=== PATIENT | female | born 1965 | race American Indian/Alaskan Native ===

== ENCOUNTER 2016-12-13 11:00 | Outpatient (CLI) | payer BC | END 2016-12-13 11:01 | disposition home or self-care (01) | LOC: SLR 11:00 | PROVIDERS: ATTEND Specialist | DX: G47.30 Sleep apnea, unspecified (principal); E66.9 Obesity, unspecified; I10 Essential (primary) hypertension | CPT/HCPCS: G0399 ==

== ENCOUNTER 2017-03-18 07:30 | Inpatient (IN) | payer BC, OTHER ==
[~2017-03-18 07:30] MED LIST: NACL 0.9% 1000 ML 1,000 ML IV SCH; PEPCID IV NR; TRANSDERM-SCOP TD NR; VERSED IV NR
[2017-03-18] MEDS ORDERED: MYLICON PO PRN (07:48)
[2017-03-18] MEDS ORDERED: ZOFRAN IV PRN (07:48)
[2017-03-18] MEDS ORDERED: REGLAN IV PRN (07:48)
[2017-03-18] MEDS ORDERED: APRESOLINE IV PRN (07:48)
[2017-03-18] MEDS ORDERED: ZEMURON IV ONE ×2 (08:14→11:20)
[2017-03-18] MEDS ORDERED: XYLOCAINE MPF 2% ONE (08:14)
[2017-03-18] MEDS ORDERED: SUBLIMAZE ONE (08:14)
[2017-03-18] MEDS ORDERED: DIPRIVAN 10 MG/ML IV ONE (08:15)
[2017-03-18] MEDS ORDERED: LOVENOX SUB-Q NR (09:15)
[2017-03-18] MEDS ORDERED: LEVAQUIN 500MG/100ML 500 MG/100 ML BAG IV NR (09:16)
[2017-03-18] MEDS ORDERED: FLAGYL 500 MG/100 ML 500 MG/100 ML BAG IV NR (09:16)
[2017-03-18] MEDS ORDERED: XYLOCAINE 1% 20 mL ONE (09:34)
[2017-03-18] MEDS ORDERED: MARCAINE 0.5% 30 ML INFILTRATI ONE (09:34)
--- NOTE | 2017-03-18 09:50 | Anesthesia Consultation ---
Anesthesia Consult and Med Hx Date of service: 03/18/17 - Airway Anesthetic Teeth Evaluation: Good ROM Head & Neck: Adequate Mental/Hyoid Distance: Adequate Mallampati Class: Class II Intubation Access Assessment: Probably Good - Pulmonary Exam CTA: Yes - Cardiac Exam Cardiac Exam: RRR - Pre-Operative Health Status ASA Pre-Surgery Classification: ASA3 Proposed Anesthetic Plan: General - Pulmonary Hx Smoking: No - Cardiovascular System Hx Hypertension: No - Central Nervous System Hx Psychiatric Problems: Yes (Anxiety) - Gastrointestinal Hx Gastroesophageal Reflux Disease: Yes - Hematic Hx Anemia: Yes - Other Systems Hx Obesity: Yes
--- NOTE | 2017-03-18 09:50 | Anesthesia Day of Surgery ---
Anesthesia Day of Surgery - Day of Surgery Patient Examined: Yes Patient H&P Reviewed: Yes Patient is NPO: Yes
[2017-03-18] MEDS ORDERED: MARCAINE 0.5% INFILTRATI ONE (09:57)
[2017-03-18] MEDS ORDERED: XYLOCAINE 1% 20 mL INFILTRATI ONE (09:57)
[2017-03-18] MEDS ORDERED: NACL 0.9% IR ONE (09:57)
[2017-03-18] MEDS ORDERED: NEO SYNEPHRINE/NS Syringe(OR USE) IV ONE ×2 (11:05→11:37)
[2017-03-18] MEDS ORDERED: FLEXERIL PO PRN (11:13)
[2017-03-18] MEDS ORDERED: DILAUDID ONE (11:20)
[2017-03-18] MEDS ORDERED: DECADRON ONE (11:22)
[2017-03-18] MEDS ORDERED: NACL 0.9% 1000 ML 1,000 ML ONE (11:37)
[2017-03-18] MEDS ORDERED: ROBINUL ONE (11:54)
[2017-03-18] MEDS ORDERED: NEOSTIGMINE ONE (11:54)
[2017-03-18] MEDS ORDERED: MORPHINE IV ONE ×2 (12:40→12:55)
[2017-03-18] MEDS ORDERED: TORADOL IV ONE (13:02)
[2017-03-18] MEDS: MORPHINE IV PRN ×2 (18:07→21:32)
[2017-03-18] MEDS: LACTATED RINGERS 1,000 ML IV SCH (18:29)
[2017-03-18] MEDS: XANAX PO PRN (23:52)
[2017-03-18] MEDS: NORCO PO PRN (23:53)
[2017-03-19] MEDS: LACTATED RINGERS 1,000 ML IV SCH ×4 (00:05→20:24)
[2017-03-19 05:15] LABS: Basophils % (Auto) 0.5 % (0.0-1.8); Eosinophils # (Auto) 0.1 K/mm3 (0.0-0.4); Eosinophils % (Auto) 1.5 % (0.0-4.3); Hematocrit 32.8 % (30.3-42.9); Lymphocytes # (Auto) 1.2 K/mm3 (1.2-5.4); Lymphocytes % (Auto) 14.8 % (13.4-35.0); Mean Corpuscular HGB Conc 34 % (30-34); Mean Corpuscular Hemoglobin 28 pg (28-32); Mean Corpuscular Volume 84 fl (79-97); Monocytes # (Auto) 0.4 K/mm3 (0.0-0.8); Monocytes % (Auto) 4.9 % (0.0-7.3); Platelet Count 185 K/mm3 (140-440); Red Blood Count 3.92 M/mm3 (3.65-5.03); Red Cell Distribution Width 23.1 % (13.2-15.2)
[2017-03-19] MEDS: NORCO PO PRN ×2 (05:21→11:47)
[2017-03-19 05:40] LABS: Alanine Aminotransferase 62 units/L (7-56); Albumin 3.7 g/dL (3.9-5); BUN/Creatinine Ratio 20; Blood Urea Nitrogen 10 mg/dL (7-17); Calcium 8.4 mg/dL (8.4-10.2); Hemolysis Index 1
[2017-03-19] MEDS: LOVENOX SUB-Q SCH (09:45)
--- NOTE | 2017-03-19 11:54 | Discharge Summary ---
Providers - Providers Date of Admission: 03/18/17 07:30 Attending physician: YOAN HARRISON Primary care physician: SELENE TROTTER Hospitalization Reason for admission: surgery Condition: Good Procedures: 51 y.o. F s/p GJ revision, BP limb lengthening, hiatal hernia repair and repair of gastrotomy of gastric remnant Hospital course: 51 y.o. F admitted for bariatric surgery. She had a GJ revision, BP limb lengthening, hiatal hernia repair and repair of gastrotomy of gastric remnant. On POD 1 she was able to tolerate minimal clears and ambulate. Her abdominal pain was minmally controlled with pain medications. She stayed overnight to ensure her pain improved. On pod 2 her pain was more controlled. She was able to tolerate more liquids and ambulate. She will be discharged with the HALINA and will keep a recording of the daily outputs. She has been educated on how to change the drain dressing. Disposition: DC-01 TO HOME OR SELFCARE Core Measure Documentation - Palliative Care Palliative Care/ Comfort Measures: Not Applicable - Core Measures Any of the following diagnoses?: none Exam - Physical Exam Narrative exam: no change from prior - Constitutional Vitals: Temp Pulse Resp BP Pulse Ox 97.8 F 73 18 116/77 100 03/19/17 08:55 03/19/17 08:55 03/19/17 08:55 03/19/17 08:55 03/18/17 21:42 Plan Activity: other (no lifting >15lbs for 6 weeks. No crunches for 6 weeks. ) Diet: clear liquids (sugar free ) Wound: keep clean and dry Additional Instructions: Follow up for wound check. continue to walk and use Incentive spirometer. goal fluid intake is 64 oz and protein intake goal is 60g. Keep a record of the drain output. Empty the drain as needed. Follow up with: SELENE TROTTER MD [Primary Care Provider] - 7 Days
[2017-03-19 12:54] LABS: Bilirubin,Urine NEG (Negative); Blood,Urine SM (Negative); Color,Urine Yellow (Yellow); Mucus,Urine FEW /HPF; Nitrite,Urine NEG (Negative); Protein,Urine <15 mg/dL mg/dL (Negative); RBC,Urine < 1.0 /HPF (0.0-6.0); Urobilinogen,Urine < 2.0 mg/dL (<2.0)
--- NOTE | 2017-03-19 13:46 | Progress Note ---
Assessment and Plan 51 y.o. F s/p GJ revision, BP limb lengthening, hiatal hernia repair and repair of gastrotomy of gastric remnant. POD 1 Pain control- pt continues to have pain that is not well controlled. Will continue current regmine and add toradol. Encourage ambulation Nausea control HALINA teaching Will stay overnight to gain improved pain control . GI dvt proph Subjective Narrative: Pt resting in bed. She has left abdominal pain which is slightly improved with pain medications. She denies any nausea or vomiting. She has ambulated once today. She feels very weak. HALINA: 20cc serosang Objective Vital Signs - 12hr 03/19/17 03/19/17 08:55 13:20 Temperature 97.8 F 97.8 F Pulse Rate 73 81 Respiratory 18 20 Rate Blood Pressure 118/74 Blood Pressure 116/77 [Left] O2 Sat by Pulse 98 Oximetry - General physical appearance well developed, well nourished, obese - Respiratory normal expansion, clear to auscultation - Abdomen soft, other (tender at incision sites, incisional dressings cdi. HALINA serosang. no reboudn no guarding. +obese. ) - Neurologic normal coordination, normal sensation - Psychiatric oriented to time, oriented to person, oriented to place - Labs 03/19/17 04:56 03/19/17 04:56 Diabetes panel 03/19/17 Range/Units 04:56 Sodium 139 (137-145) mmol/L Potassium 4.3 (3.6-5.0) mmol/L Chloride 103.0 (98-107) mmol/L Carbon Dioxide 24 (22-30) mmol/L BUN 10 (7-17) mg/dL Creatinine 0.5 L (0.7-1.2) mg/dL Glucose 88 (65-100) mg/dL Calcium 8.4 (8.4-10.2) mg/dL AST 55 H (5-40) units/L ALT 62 H (7-56) units/L Alkaline Phosphatase 85 (35-129) units/L Total Protein 5.9 L (6.3-8.2) g/dL Albumin 3.7 L (3.9-5) g/dL Calcium panel 03/19/17 Range/Units 04:56 Calcium 8.4 (8.4-10.2) mg/dL Albumin 3.7 L (3.9-5) g/dL Pituitary panel 03/19/17 Range/Units 04:56 Sodium 139 (137-145) mmol/L Potassium 4.3 (3.6-5.0) mmol/L Chloride 103.0 (98-107) mmol/L Carbon Dioxide 24 (22-30) mmol/L BUN 10 (7-17) mg/dL Creatinine 0.5 L (0.7-1.2) mg/dL Glucose 88 (65-100) mg/dL Calcium 8.4 (8.4-10.2) mg/dL Adrenal panel 03/19/17 Range/Units 04:56 Sodium 139 (137-145) mmol/L Potassium 4.3 (3.6-5.0) mmol/L Chloride 103.0 (98-107) mmol/L Carbon Dioxide 24 (22-30) mmol/L BUN 10 (7-17) mg/dL Creatinine 0.5 L (0.7-1.2) mg/dL Glucose 88 (65-100) mg/dL Calcium 8.4 (8.4-10.2) mg/dL Total Bilirubin 0.40 (0.1-1.2) mg/dL AST 55 H (5-40) units/L ALT 62 H (7-56) units/L Alkaline Phosphatase 85 (35-129) units/L Total Protein 5.9 L (6.3-8.2) g/dL Albumin 3.7 L (3.9-5) g/dL
[2017-03-19] MEDS: TORADOL IV SCH ×3 (15:03→23:00)
[2017-03-19] MEDS: XANAX PO PRN (23:01)
[2017-03-20] MEDS: NORCO PO PRN ×2 (04:41→12:58)
[2017-03-20] MEDS: LACTATED RINGERS 1,000 ML IV SCH ×2 (04:43→11:03)
[2017-03-20 06:36] LABS: Hemoglobin 9.8 gm/dl (10.1-14.3); Mean Corpuscular HGB Conc 33 % (30-34); Mean Corpuscular Hemoglobin 27 pg (28-32); Mean Corpuscular Volume 84 fl (79-97); Platelet Count 161 K/mm3 (140-440); Red Blood Count 3.56 M/mm3 (3.65-5.03)
[2017-03-20 06:39] LABS: Red Cell Distribution Width 22.8 % (13.2-15.2)
[2017-03-20 06:48] LABS: Albumin 3.3 g/dL (3.9-5)
[2017-03-20 07:05] LABS: Alanine Aminotransferase 48 units/L (7-56); BUN/Creatinine Ratio 12; Blood Urea Nitrogen 6 mg/dL (7-17); Hemolysis Index 3
[2017-03-20 07:37] LABS: Anisocytosis 1+; Basophils % (Manual) 0 % (0.0-1.8); Ovalocytes Few; Poikilocytosis 1+; Target Cells Rare; Total Cells Counted 100
[2017-03-20] MEDS: TORADOL IV SCH (10:32)
[2017-03-20] MEDS: LOVENOX SUB-Q SCH (10:33)
--- NOTE | 2017-03-20 10:39 | Progress Note ---
Assessment and Plan 51 y.o. F s/p GJ revision, BP limb lengthening, hiatal hernia repair and repair of gastrotomy of gastric remnant. POD 2 Pain control- pt states pain is well controlled. Will continue current regmine. Continue to Encourage ambulation Nausea control HUMZA teaching completed - will dc home with humza Patient ready for discharge pending stat Hgb results - yesterday 11, today 9.8. If stable will dc. today. GI dvt proph Subjective Patient Reports: Positive: no new complaints, feels better, tolerating liquids well, flatus, no bowel movement Narrative: No acute events overnight. Patient was walking halls during interview, states she is ambulating well. Pain is well controlled at this time. Denies N/V or cramping. No bowel movement x4 days, but reports flatus. HUMZA: 30cc serosang Objective Vital Signs - 12hr 03/20/17 03/20/17 03/20/17 01:01 04:11 09:15 Temperature 97.9 F 97.9 F 97.3 F L Pulse Rate 74 52 L Respiratory 16 16 18 Rate Blood Pressure 128/78 122/77 Blood Pressure 136/95 [Left] O2 Sat by Pulse 96 100 Oximetry - General physical appearance no distress, no pain - Eyes PERRL, normal occular movement - Respiratory normal expansion, normal respiratory effort, clear to auscultation - Abdomen soft, bowel sounds normal, other (incision sites- dry blood. incisional tenderness. ) - Labs 03/20/17 05:18 03/20/17 05:18 Diabetes panel 03/20/17 Range/Units 05:18 Sodium 139 (137-145) mmol/L Potassium 3.7 (3.6-5.0) mmol/L Chloride 102.2 (98-107) mmol/L Carbon Dioxide 27 (22-30) mmol/L BUN 6 L (7-17) mg/dL Creatinine 0.5 L (0.7-1.2) mg/dL Glucose 81 (65-100) mg/dL Calcium 8.0 L (8.4-10.2) mg/dL AST 37 (5-40) units/L ALT 48 (7-56) units/L Alkaline Phosphatase 68 (35-129) units/L Total Protein 5.7 L (6.3-8.2) g/dL Albumin 3.3 L (3.9-5) g/dL Calcium panel 03/20/17 Range/Units 05:18 Calcium 8.0 L (8.4-10.2) mg/dL Albumin 3.3 L (3.9-5) g/dL Pituitary panel 03/20/17 Range/Units 05:18 Sodium 139 (137-145) mmol/L Potassium 3.7 (3.6-5.0) mmol/L Chloride 102.2 (98-107) mmol/L Carbon Dioxide 27 (22-30) mmol/L BUN 6 L (7-17) mg/dL Creatinine 0.5 L (0.7-1.2) mg/dL Glucose 81 (65-100) mg/dL Calcium 8.0 L (8.4-10.2) mg/dL Adrenal panel 03/20/17 Range/Units 05:18 Sodium 139 (137-145) mmol/L Potassium 3.7 (3.6-5.0) mmol/L Chloride 102.2 (98-107) mmol/L Carbon Dioxide 27 (22-30) mmol/L BUN 6 L (7-17) mg/dL Creatinine 0.5 L (0.7-1.2) mg/dL Glucose 81 (65-100) mg/dL Calcium 8.0 L (8.4-10.2) mg/dL Total Bilirubin 0.30 (0.1-1.2) mg/dL AST 37 (5-40) units/L ALT 48 (7-56) units/L Alkaline Phosphatase 68 (35-129) units/L Total Protein 5.7 L (6.3-8.2) g/dL Albumin 3.3 L (3.9-5) g/dL
[2017-03-20 15:43] LABS: Basophils % (Auto) 0.3 % (0.0-1.8); Eosinophils # (Auto) 0.2 K/mm3 (0.0-0.4); Eosinophils % (Auto) 4.5 % (0.0-4.3); Hemoglobin 10.7 gm/dl (10.1-14.3); Lymphocytes # (Auto) 1.7 K/mm3 (1.2-5.4); Lymphocytes % (Auto) 31.5 % (13.4-35.0); Mean Corpuscular HGB Conc 32 % (30-34); Mean Corpuscular Hemoglobin 28 pg (28-32); Mean Corpuscular Volume 85 fl (79-97); Monocytes # (Auto) 0.2 K/mm3 (0.0-0.8); Monocytes % (Auto) 4.3 % (0.0-7.3); Platelet Count 189 K/mm3 (140-440); Red Blood Count 3.88 M/mm3 (3.65-5.03); Red Cell Distribution Width 23.1 % (13.2-15.2)
[2017-03-20] MEDS ORDERED: MAGNESIUM SULFATE 2GM/50ML 2 GM/50 ML BAG IV ONE (16:30)
[2017-03-20 16:48] VITALS: BP 114/75
[2017-03-21] MEDS ORDERED: TRANSDERM-SCOP TD SCH (10:00)
== END 2017-03-20 19:30 | disposition home or self-care (01) | DRG 326 ==
LOC: 3A 07:30 → 3B-SURG 12:40
PROVIDERS: ADMIT Specialist; ATTEND Specialist
PROC: 0D9640Z Drainage of Stomach with Drainage Device, Percutaneous Endoscopic Approach (ICD-10-PCS; principal; 2017-03-18)
PROC: 0DNA4ZZ Release Jejunum, Percutaneous Endoscopic Approach (ICD-10-PCS; 2017-03-18)
PROC: 0DN64ZZ Release Stomach, Percutaneous Endoscopic Approach (ICD-10-PCS; 2017-03-18)
PROC: 0D1B4ZH Bypass Ileum to Cecum, Percutaneous Endoscopic Approach (ICD-10-PCS; 2017-03-18)
PROC: 0DQA4ZZ Repair Jejunum, Percutaneous Endoscopic Approach (ICD-10-PCS; 2017-03-18)
PROC: 0DQ64ZZ Repair Stomach, Percutaneous Endoscopic Approach (ICD-10-PCS; 2017-03-18)
DX: K91.1 Postgastric surgery syndromes (principal); S31.639A Puncture wound without foreign body of abdominal wall, unspecified quadrant with penetration into peritoneal cavity, initial encounter; E44.1 Mild protein-calorie malnutrition; K95.89 Other complications of other bariatric procedure; S36.33XA Laceration of stomach, initial encounter; K21.9 Gastro-esophageal reflux disease without esophagitis; F41.9 Anxiety disorder, unspecified; F32.9 Major depressive disorder, single episode, unspecified; Y83.2 Surgical operation with anastomosis, bypass or graft as the cause of abnormal reaction of the patient, or of later complication, without mention of misadventure at the time of the procedure; D53.8 Other specified nutritional anemias; D64.9 Anemia, unspecified; I10 Essential (primary) hypertension; E66.9 Obesity, unspecified; Z68.35 Body mass index [BMI] 35.0-35.9, adult; Z82.49 Family history of ischemic heart disease and other diseases of the circulatory system; Z90.710 Acquired absence of both cervix and uterus; Z80.59 Family history of malignant neoplasm of other urinary tract organ; Z84.89 Family history of other specified conditions; K66.0 Peritoneal adhesions (postprocedural) (postinfection)
CPT/HCPCS: 36415; 80053; 81001; 83735; 85007; 85025; C9250; J1100; J1170; J1650; J1885; J1956; J2250; J2270; J2370; J2405; J2704; J2710; J3010; J3475; J7030; J7120

== ENCOUNTER 2017-09-06 06:42 | Emergency (ER) | payer BC, OTHER ==
[2017-09-06 07:38] LABS: Basophils # (Auto) 0.1 K/mm3 (0.0-0.1); Basophils % (Auto) 1.1 % (0.0-1.8); Eosinophils # (Auto) 0.1 K/mm3 (0.0-0.4); Eosinophils % (Auto) 2.4 % (0.0-4.3); Hematocrit 34.9 % (30.3-42.9); Hemoglobin 11.1 gm/dl (10.1-14.3); Lymphocytes % (Auto) 32.5 % (13.4-35.0); Mean Corpuscular HGB Conc 32 % (30-34); Mean Corpuscular Hemoglobin 30 pg (28-32); Mean Corpuscular Volume 94 fl (79-97); Monocytes # (Auto) 0.4 K/mm3 (0.0-0.8); Monocytes % (Auto) 6.9 % (0.0-7.3); Platelet Count 237 K/mm3 (140-440); Red Blood Count 3.73 M/mm3 (3.65-5.03); Red Cell Distribution Width 14.5 % (13.2-15.2)
[2017-09-06 07:55] LABS: Alanine Aminotransferase 14 units/L (7-56); Albumin 3.9 g/dL (3.9-5); BUN/Creatinine Ratio 23; Blood Urea Nitrogen 14 mg/dL (7-17); Calcium 8.8 mg/dL (8.4-10.2); Hemolysis Index 11
[2017-09-06 08:17] LABS: Bacteria,Urine 2+ /HPF (Negative); Bilirubin,Urine NEG (Negative); Blood,Urine NEG (Negative); Color,Urine Yellow (Yellow); Mucus,Urine FEW /HPF; Protein,Urine <15 mg/dL mg/dL (Negative); Urobilinogen,Urine < 2.0 mg/dL (<2.0)
--- NOTE | 2017-09-06 08:18 | Emergency Department Report ---
ED Abdominal Pain HPI - General Chief Complaint: Abdominal Pain Stated Complaint: ABD PAIN Time Seen by Provider: 09/06/17 08:11 Source: patient Mode of arrival: Ambulatory Limitations: No Limitations - History of Present Illness Initial Comments: Patient gives 2 day history of left sided abdominal pain, with discomfort on urination for the past week. She has tried taking her 's amoxicillin for the past couple days, but this has not relieved any of her symptoms. She denies any nausea or vomiting, has not had any fever chills or diaphoresis. Past medical history is significant for prior gastric bypass surgery, as well as , hysterectomy, and tubal ligation. - Related Data Home Medications Medication Instructions Recorded Confirmed Last Taken ALPRAZolam [Xanax TAB] 1 mg PO QHS PRN 02/21/16 03/18/17 03/17/17 Previous Rx's Medication Instructions Recorded Last Taken Type Cyclobenzaprine [Flexeril 10 MG 10 mg PO TID PRN #15 tablet 01/25/17 03/17/17 Rx TAB] HYDROcodone/APAP 5-325 [[place] 1 each PO Q6HR PRN #12 tablet 09/06/17 Unknown Rx 5/325] Ondansetron [Zofran ODT TAB] 4 mg PO Q8HR PRN #5 tab.rapdis 09/06/17 Unknown Rx Sulfamethoxazole/Trimethoprim 1 each PO BID #14 tablet 09/06/17 Unknown Rx [Bactrim DS TAB] Allergies Allergy/AdvReac Type Severity Reaction Status Date / Time Penicillins Allergy Rash Verified 01/24/17 23:25 ED Review of Systems ROS: Stated complaint: ABD PAIN Other details as noted in HPI ED Past Medical Hx - Past Medical History Previous Medical History?: Yes Hx Hypertension: No Hx Congestive Heart Failure: No Hx Diabetes: No Hx GERD: Yes (FOR REVISION OF GASTRIC SURGERY) Hx Psychiatric Treatment: Yes (anxiety) Hx Asthma: No Hx COPD: No Hx HIV: No Additional medical history: Anemia (Has had blood transfusion x 2) - Surgical History Past Surgical History?: Yes Additional Surgical History: Gastric Bypass. TUBAL LIGATION. X 2. HYSTERECTOMY - Social History Smoking Status: Never Smoker Substance Use Type: None - Medications Home Medications: Home Medications Medication Instructions Recorded Confirmed Last Taken Type ALPRAZolam [Xanax TAB] 1 mg PO QHS PRN 02/21/16 03/18/17 03/17/17 History Cyclobenzaprine [Flexeril 10 MG 10 mg PO TID PRN #15 tablet 01/25/17 03/18/17 Rx TAB] HYDROcodone/APAP 5-325 [[place] 1 each PO Q6HR PRN #12 tablet 09/06/17 Unknown Rx 5/325] Ondansetron [Zofran ODT TAB] 4 mg PO Q8HR PRN #5 tab.rapdis 09/06/17 Unknown Rx Sulfamethoxazole/Trimethoprim 1 each PO BID #14 tablet 09/06/17 Unknown Rx [Bactrim DS TAB] ED Physical Exam - General Limitations: No Limitations General appearance: alert, in distress (mild discomfort left back and left flank ) - Head Head exam: Present: atraumatic, normocephalic - Eye Eye exam: Present: PERRL, EOMI - ENT ENT exam: Present: normal exam - Neck Neck exam: Present: normal inspection. Absent: tenderness - Respiratory Respiratory exam: Present: normal lung sounds bilaterally, other (no chest wall tenderness). Absent: wheezes, rales, rhonchi - Cardiovascular Cardiovascular Exam: Present: regular rate, normal heart sounds - GI/Abdominal GI/Abdominal exam: Present: soft, tenderness (left upper quadrant left flank, mild to moderate), normal bowel sounds. Absent: guarding, rebound - Rectal Rectal exam: Present: deferred - Extremities Exam Extremities exam: Present: normal inspection, full ROM - Back Exam Back exam: Present: normal inspection, tenderness (left costovertebral), CVA tenderness (L), muscle spasm. Absent: CVA tenderness (R), paraspinal tenderness , vertebral tenderness - Neurological Exam Neurological exam: Present: alert, oriented X3, CN II-XII intact. Absent: motor sensory deficit - Psychiatric Psychiatric exam: Present: normal affect, normal mood - Skin Skin exam: Present: warm, dry ED Course Vital Signs 09/06/17 09/06/17 06:44 06:51 Temperature 36.3 C L 36.3 C L Pulse Rate 55 L 61 Respiratory 14 16 Rate Blood Pressure 126/72 126/72 O2 Sat by Pulse 100 100 Oximetry ED Medical Decision Making - Lab Data Result diagrams: 09/06/17 07:32 09/06/17 07:26 - Radiology Data Radiology results: report reviewed (CT scan of abdomen without contrast, generally unremarkable, no acute intra-abdominal pathology, incidental note left nephrolithiasis) - Medical Decision Making Patient's had left-sided abdominal pain, with a benign abdomen, with some tenderness in the left costovertebral area, suggesting that she has an underlying urinary tract infection or pyelonephritis. This may been partially treated, as patient had taken her 's amoxicillin for the week previous. Laboratory evaluation is unremarkable, urinalysis is mixed with some bacteria, but no leukocyte esterase, but this could be a result of partial prior treatment. Finally, CT scanning is unremarkable, showing stable abdomen, intact Kasandra-en-Y bypass, but no other significant intra-abdominal pathology, including no obstruction, no diverticulitis, and no evidence of acute hydronephrosis, although patient does have a left renal stone. Patient appears to have secondary concerns over possible tumor, as her sister was diagnosed in similar fashion with a stage IV tumor. Patient was reassured, and will be treated symptomatically, and to have follow-up with her [facility] repaire[facility] central office. - Differential Diagnosis urinary tract infection, diverticulitis, small bowel obstruction Critical Care Time: No Critical care attestation.: If time is entered above; I have spent that time in minutes in the direct care of this critically ill patient, excluding procedure time. ED Disposition Clinical Impression: Vaginal candidiasis, Left nephrolithiasis Abdominal pain Qualifiers: Abdominal location: left upper quadrant Qualified Code(s): R10.12 - Left upper quadrant pain Urinary tract infection Qualifiers: Urinary tract infection type: acute pyelonephritis Qualified Code(s): N10 - Acute pyelonephritis Disposition: TO HOME OR SELFCARE Is pt being admited?: No Does the pt Need Aspirin: No Condition: Stable Instructions: Urinary Tract Infection in Women (ED), Abdominal Pain (ED) Prescriptions: HYDROcodone/APAP 5-325 [[place] 5/325] 1 each PO Q6HR PRN #12 tablet PRN Reason: Pain Ondansetron [Zofran ODT TAB] 4 mg PO Q8HR PRN #5 tab.rapdis PRN Reason: Nausea Sulfamethoxazole/Trimethoprim [Bactrim DS TAB] 1 each PO BID #14 tablet Referrals: PRIMARY CARE, [Primary Care Provider] - 3-5 Days Time of Disposition: 09:12
--- NOTE | 2017-09-06 08:55 | Cat Scan Report ---
FINAL REPORT EXAM: CT ABDOMEN PELVIS WO CON HISTORY: abd pain/ HX of gastric Sx TECHNIQUE: CT images obtained through the Abdomen and Pelvis without contrast. Transaxial,coronal and sagittal reformats are provided. PRIORS: None. FINDINGS: Imaged intrathoracic contents are unremarkable. Kidneys are normal in size, axis and position. No hydroureteronephrosis. There is a nonobstructive 9 millimeter left collecting system stone. The ureters are normal in course and caliber. No stones are seen within the urinary bladder. The gallbladder is distended. No pericholecystic inflammatory stranding or edema identified. Suggested 3 millimeter fundal stone/polyp. The liver, pancreas, spleen, and adrenal glands demonstrate an unremarkable noncontrast appearance. Patient is status post Kasandra-en-Y gastric bypass. Hollow enteric organs are otherwise normal in caliber. Appendix is normal. No intra-abdominal free air/fluid or lymphadenopathy. Aorta is normal in course and caliber. Superficial soft tissues are unremarkable. No acute or aggressive appearing skeletal findings. IMPRESSION: No acute findings in the abdomen or pelvis. Possible 3 millimeter stone or polyp at the fundal aspect of the gallbladder. Follow-up right upper quadrant ultrasound is suggested. Postsurgical gastric bypass findings without evident obstruction. Nonobstructive left renal calcification measures up to 9 millimeters.
[2017-09-06] MEDS ORDERED: NORCO 10/325 PO ONE (09:04)
[2017-09-06] MEDS ORDERED: BACTRIM DS PO ONE (09:04)
[2017-09-06] MEDS ORDERED: DIFLUCAN PO ONE (09:30)
[2017-09-06 10:37] VITALS: BP 124/74
== END 2017-09-06 10:36 | disposition home or self-care (01) ==
LOC: ED 06:42
DX: N10 Acute pyelonephritis (principal); R10.12 Left upper quadrant pain; B37.3 Candidiasis of vulva and vagina; N20.0 Calculus of kidney; K21.9 Gastro-esophageal reflux disease without esophagitis
CPT/HCPCS: 36415; 74176; 80053; 81001; 85025

== ENCOUNTER 2017-12-31 03:30 | Emergency (ER) | payer BC ==
[2017-12-31] MEDS ORDERED: NACL 0.9% 1000 ML 1,000 ML IV ONE (03:48)
[2017-12-31 04:18] LABS: Basophils % (Auto) 0.4 % (0.0-1.8); Eosinophils # (Auto) 0.2 K/mm3 (0.0-0.4); Eosinophils % (Auto) 2.7 % (0.0-4.3); Hematocrit 33.7 % (30.3-42.9); Hemoglobin 10.9 gm/dl (10.1-14.3); Lymphocytes # (Auto) 2.3 K/mm3 (1.2-5.4); Lymphocytes % (Auto) 39.6 % (13.4-35.0); Mean Corpuscular HGB Conc 32 % (30-34); Mean Corpuscular Hemoglobin 30 pg (28-32); Mean Corpuscular Volume 93 fl (79-97); Monocytes # (Auto) 0.5 K/mm3 (0.0-0.8); Monocytes % (Auto) 8.4 % (0.0-7.3); Platelet Count 210 K/mm3 (140-440); Red Blood Count 3.61 M/mm3 (3.65-5.03)
[2017-12-31 04:28] LABS: Partial Thromboplastin Time 29.8 Sec. (24.2-36.6)
[2017-12-31 04:37] LABS: Alanine Aminotransferase 18 units/L (7-56); Albumin 4.2 g/dL (3.9-5); BUN/Creatinine Ratio 26; Blood Urea Nitrogen 13 mg/dL (7-17); Hemolysis Index 4; Lipase 39 units/L (13-60)
--- NOTE | 2017-12-31 08:16 | XRay Report ---
ROUTINE CHEST, TWO VIEWS: HISTORY: Cough. The trachea, heart, mediastinal contour, lung lewis and bony thorax are unremarkable. IMPRESSION: Unremarkable chest x-ray.
[2017-12-31] MEDS ORDERED: DELTASONE PO ONE (08:33)
[2017-12-31] MEDS ORDERED: TESSALON PERLES PO ONE (08:33)
[2017-12-31] MEDS ORDERED: ZITHROMAX PO ONE (08:33)
--- NOTE | 2017-12-31 09:56 | Emergency Department Report ---
- General Chief Complaint: Abdominal Pain Stated Complaint: URI SX Time Seen by Provider: 12/31/17 07:52 Source: patient Mode of arrival: Ambulatory Limitations: No Limitations - History of Present Illness Initial Comments: 52-year-old female with past medical history of GERD, gastric bypass surgery, anxiety, anemia requiring blood transfusion, and previous hysterectomy and colon resection presents to Hospital complaining of cough and cold symptoms as well as blood in stool. Patient states she has had significant postnasal drip for the last 2-1/2 months. She has been using her 's allergy relief medication for some relief. For the past 3 days she has had a frequent dry cough which causes her to be short of breath during coughing spells. No complaints of hemoptysis, wheezing, fever, calf tenderness, edema, or recent international travel. Or the last 2 days patient has had diarrhea noticed some blood in her stool with one of the episodes and after wiping. Patient complains of 4/10 epigastric pain associated with coughing. - Related Data Home Medications Medication Instructions Recorded Confirmed Last Taken ALPRAZolam [Xanax TAB] 1 mg PO QHS PRN 02/21/16 03/18/17 03/17/17 Previous Rx's Medication Instructions Recorded Last Taken Type Cyclobenzaprine [Flexeril 10 MG 10 mg PO TID PRN #15 tablet 01/25/17 03/17/17 Rx TAB] HYDROcodone/APAP 5-325 [[place] 1 each PO Q6HR PRN #12 tablet 09/06/17 Unknown Rx 5/325] Sulfamethoxazole/Trimethoprim 1 each PO BID #14 tablet 09/06/17 Unknown Rx [Bactrim DS TAB] Azithromycin [Zithromax Z-YONG] 1 dose PO DAILY 5 Days tab 12/31/17 Unknown Rx Benzonatate [Tessalon Perles] 100 mg PO Q8HR PRN #20 capsule 12/31/17 Unknown Rx predniSONE [Deltasone] 40 mg PO QDAY 5 Days tab 12/31/17 Unknown Rx Allergies Allergy/AdvReac Type Severity Reaction Status Date / Time Penicillins Allergy Rash Verified 01/24/17 23:25 ED Review of Systems ROS: Stated complaint: URI SX Other details as noted in HPI Comment: All other systems reviewed and negative ED Past Medical Hx - Past Medical History Previous Medical History?: Yes Hx Hypertension: No Hx Congestive Heart Failure: No Hx Diabetes: No Hx GERD: Yes (FOR REVISION OF GASTRIC SURGERY) Hx Kidney Stones: Yes Hx Psychiatric Treatment: Yes (anxiety) Hx Asthma: No Hx COPD: No Hx HIV: No Additional medical history: Anemia (Has had blood transfusion x 2) - Surgical History Past Surgical History?: Yes Additional Surgical History: Gastric Bypass. TUBAL LIGATION. X 2. HYSTERECTOMY. colon resection - Social History Smoking Status: Never Smoker Substance Use Type: Alcohol - Medications Home Medications: Home Medications Medication Instructions Recorded Confirmed Last Taken Type ALPRAZolam [Xanax TAB] 1 mg PO QHS PRN 02/21/16 03/18/17 03/17/17 History Cyclobenzaprine [Flexeril 10 MG 10 mg PO TID PRN #15 tablet 01/25/17 03/18/17 Rx TAB] HYDROcodone/APAP 5-325 [[place] 1 each PO Q6HR PRN #12 tablet 09/06/17 Unknown Rx 5/325] Sulfamethoxazole/Trimethoprim 1 each PO BID #14 tablet 09/06/17 Unknown Rx [Bactrim DS TAB] Azithromycin [Zithromax Z-YONG] 1 dose PO DAILY 5 Days tab 12/31/17 Unknown Rx Benzonatate [Tessalon Perles] 100 mg PO Q8HR PRN #20 capsule 12/31/17 Unknown Rx predniSONE [Deltasone] 40 mg PO QDAY 5 Days tab 12/31/17 Unknown Rx ED Physical Exam - General Limitations: No Limitations - Other Other exam information: General: No limitations, patient is alert in no acute distress Head exam: Atraumatic, normocephalic Eyes exam: Normal appearance, pupils equal reactive to light, extraocular movements intact ENT: Moist mucous membrane, normal oropharynx Neck exam: Normal inspection, full range of motion, no meningismus nontender Respiratory exam: Clear to auscultation bilateral, no wheezes, rales, crackles. Frequent dry cough Cardiovascular: Normal rate and rhythm Abdomen: Soft, nondistended, and nontender, with normal bowel sounds, no rebound, or guarding Rectal: Patient has guaiac positive brown stool without melena or hematochezia Extremity: Full range of motion normal inspection no deformity Back: Normal Inspection, full range of motion, no tenderness Neurologic: Alert, oriented x3, cranial nerves intact, no motor or sensory deficit Psychiatric: normal affect, normal mood Skin: Warm, dry, intact ED Course Vital Signs 12/31/17 12/31/17 12/31/17 03:38 03:39 05:00 Temperature 97.8 F 97.8 F Pulse Rate 63 63 Respiratory 18 18 18 Rate Blood Pressure 125/81 125/81 O2 Sat by Pulse 100 100 Oximetry 12/31/17 12/31/17 12/31/17 08:04 08:05 08:07 Temperature Pulse Rate 81 64 65 Respiratory 17 22 19 Rate Blood Pressure 116/64 116/64 O2 Sat by Pulse 98 98 96 Oximetry 12/31/17 12/31/17 12/31/17 08:09 08:11 08:13 Temperature Pulse Rate 64 64 65 Respiratory 19 18 21 Rate Blood Pressure 116/64 116/64 116/64 O2 Sat by Pulse 96 98 97 Oximetry 12/31/17 12/31/17 08:30 09:00 Temperature Pulse Rate 68 67 Respiratory 15 15 Rate Blood Pressure 111/64 107/62 O2 Sat by Pulse 98 99 Oximetry ED Medical Decision Making - Lab Data Result diagrams: 12/31/17 03:55 12/31/17 03:55 Lab Results 12/31/17 12/31/17 12/31/17 Range/Units 03:55 03:55 03:55 WBC 5.8 (4.5-11.0) K/mm3 RBC 3.61 L (3.65-5.03) M/mm3 Hgb 10.9 (10.1-14.3) gm/dl Hct 33.7 (30.3-42.9) % MCV 93 (79-97) fl MCH 30 (28-32) pg MCHC 32 (30-34) % RDW 14.0 (13.2-15.2) % Plt Count 210 (140-440) K/mm3 Lymph % (Auto) 39.6 H (13.4-35.0) % [place] % (Auto) 8.4 H (0.0-7.3) % Eos % (Auto) 2.7 (0.0-4.3) % Baso % (Auto) 0.4 (0.0-1.8) % Lymph # 2.3 (1.2-5.4) K/mm3 [place] # 0.5 (0.0-0.8) K/mm3 Eos # 0.2 (0.0-0.4) K/mm3 Baso # 0.0 (0.0-0.1) K/mm3 Seg Neutrophils % 48.9 (40.0-70.0) % Seg Neutrophils # 2.9 (1.8-7.7) K/mm3 PT 13.7 (12.2-14.9) Sec. INR 1.00 (0.87-1.13) APTT 29.8 (24.2-36.6) Sec. Sodium 143 (137-145) mmol/L Potassium 4.0 (3.6-5.0) mmol/L Chloride 104.0 (98-107) mmol/L Carbon Dioxide 29 (22-30) mmol/L Anion Gap 14 mmol/L BUN 13 (7-17) mg/dL Creatinine 0.5 L (0.7-1.2) mg/dL Estimated GFR > 60 ml/min BUN/Creatinine Ratio 26 % Glucose 77 (65-100) mg/dL Calcium 9.0 (8.4-10.2) mg/dL Total Bilirubin 0.40 (0.1-1.2) mg/dL AST 16 (5-40) units/L ALT 18 (7-56) units/L Alkaline Phosphatase 79 (35-129) units/L Total Protein 6.8 (6.3-8.2) g/dL Albumin 4.2 (3.9-5) g/dL Albumin/Globulin Ratio 1.6 % Lipase 39 (13-60) units/L Blood Type Antibody Screen 12/31/17 Range/Units 03:55 WBC (4.5-11.0) K/mm3 RBC (3.65-5.03) M/mm3 Hgb (10.1-14.3) gm/dl Hct (30.3-42.9) % MCV (79-97) fl MCH (28-32) pg MCHC (30-34) % RDW (13.2-15.2) % Plt Count (140-440) K/mm3 Lymph % (Auto) (13.4-35.0) % [place] % (Auto) (0.0-7.3) % Eos % (Auto) (0.0-4.3) % Baso % (Auto) (0.0-1.8) % Lymph # (1.2-5.4) K/mm3 [place] # (0.0-0.8) K/mm3 Eos # (0.0-0.4) K/mm3 Baso # (0.0-0.1) K/mm3 Seg Neutrophils % (40.0-70.0) % Seg Neutrophils # (1.8-7.7) K/mm3 PT (12.2-14.9) Sec. INR (0.87-1.13) APTT (24.2-36.6) Sec. Sodium (137-145) mmol/L Potassium (3.6-5.0) mmol/L Chloride (98-107) mmol/L Carbon Dioxide (22-30) mmol/L Anion Gap mmol/L BUN (7-17) mg/dL Creatinine (0.7-1.2) mg/dL Estimated GFR ml/min BUN/Creatinine Ratio % Glucose (65-100) mg/dL Calcium (8.4-10.2) mg/dL Total Bilirubin (0.1-1.2) mg/dL AST (5-40) units/L ALT (7-56) units/L Alkaline Phosphatase (35-129) units/L Total Protein (6.3-8.2) g/dL Albumin (3.9-5) g/dL Albumin/Globulin Ratio % Lipase (13-60) units/L Blood Type B POSITIVE Antibody Screen Negative - EKG Data -: EKG Interpreted by Ut EKG shows normal: sinus rhythm, axis (qrs 66), QRS complexes (qrsd 113), ST-T waves (no stemi/t inv) Rate: normal (65) - EKG Data When compared to previous EKG there are: no significant change (01/24/17) - Medical Decision Making Patient treated in the ED with Tessalon Perles and azithromycin.. Labs, EKG, and chest x-ray unremarkable. She is treated symptomatically for cough and prescribed medications for acute bronchitis. PND, GI, and pulmonology follow- up will. Patient does have guaiac positive stool without acute signs of bleeding and normal H&H. Patient is stable for follow-up. - Differential Diagnosis pneumonia, bronchitis, CHF, anemia, anal fissure, infectious diarrhea Critical Care Time: No Critical care attestation.: If time is entered above; I have spent that time in minutes in the direct care of this critically ill patient, excluding procedure time. ED Disposition Clinical Impression: Acute bronchitis, Blood in stool Disposition: TO HOME OR SELFCARE Is pt being admited?: No Does the pt Need Aspirin: No Condition: Stable Instructions: Acute Bronchitis (ED), Rectal Bleeding (ED) Additional Instructions: Take the medication as prescribed. Follow up with your doctor and the specialists provided. Return if symptoms worsen as indicated by your discharge instructions Prescriptions: Azithromycin [Zithromax Z-YONG] 1 dose PO DAILY 5 Days tab Benzonatate [Tessalon Perles] 100 mg PO Q8HR PRN #20 capsule PRN Reason: Cough predniSONE [Deltasone] 40 mg PO QDAY 5 Days tab Referrals: PRIMARY CARE, [Primary Care Provider] - 3-5 Days DEVAN ADLER MD [Staff Physician] - 3-5 Days (GI specialist) MELISSA BREWER MD [Staff Physician] - 3-5 Days (Detail Sergeant) Forms: Work/School Release Form(ED) Time of Disposition: 10:02
[2017-12-31 10:37] VITALS: BP 123/74
== END 2017-12-31 10:37 | disposition home or self-care (01) ==
LOC: ED 03:30
DX: J20.9 Acute bronchitis, unspecified (principal); R19.5 Other fecal abnormalities; K21.9 Gastro-esophageal reflux disease without esophagitis; F41.9 Anxiety disorder, unspecified; Z86.2 Personal history of diseases of the blood and blood-forming organs and certain disorders involving the immune mechanism; Z98.84 Bariatric surgery status; Z88.0 Allergy status to penicillin; Z98.51 Tubal ligation status; Z90.710 Acquired absence of both cervix and uterus
CPT/HCPCS: 36415; 71046; 80053; 82271; 83690; 85025; 85610; 85730; 86850; 86900; 86901; 93005; 93010; 96360; 96361; 99284; J7030; J7512

== ENCOUNTER 2018-05-27 09:13 | Outpatient (CLI) | payer BC ==
--- NOTE | 2018-05-27 10:10 | Mammography Report ---
Bilateral mammogram: No previous studies available. CAD study utilized. Findings: Predominance adipose tissue bilaterally. No distinct mass or microcalcification. Normal axilla. Impression: Benign findings. Annual followup recommended. BI-RADS CATEGORY: 2 = Benign ACR BI-RADS MAMMOGRAPHIC CODES: 0 = Needs additional imaging evaluation; 1 = Negative; 2 = Benign; 3 = Probably benign; 4 = Suspicious; 5 = Malignant; 6 = Known biopsy-proven malignancy COMMENT: 1. Dense breast tissue, i.e., adenosis, fibrocystic changes, etc., may obscure an underlying neoplasm. 2. Approximately 10% of cancers are not detected with mammography. 3. A negative mammography report should not delay biopsy if a clinically suspicious mass is present. COMMENT: Patient follow-up letters are generated in sezmi.
== END 2018-05-27 09:14 | disposition home or self-care (01) ==
LOC: MAMMO 09:13
PROVIDERS: ATTEND Internal Medicine
DX: Z12.31 Encounter for screening mammogram for malignant neoplasm of breast (principal); K21.9 Gastro-esophageal reflux disease without esophagitis; E66.9 Obesity, unspecified; Z90.710 Acquired absence of both cervix and uterus
CPT/HCPCS: 77067

== ENCOUNTER 2018-08-19 17:01 | Emergency (ER) | payer BC ==
[2018-08-19 17:22] VITALS: BP 111/73
--- NOTE | 2018-08-19 17:25 | Emergency Department Report ---
Blank Doc - Documentation Documentation: 52 y o female was [facility] to ED from [facility] for rectal and vaginal pain x 3 weeks, was sent here for a CT scan interemittent x 2 years no blood in stool, pain with urine, defacating and sitting LAbs,Ua, ACC eval
[2018-08-19 17:54] LABS: Basophils # (Auto) 0.1 K/mm3 (0.0-0.1); Eosinophils # (Auto) 0.1 K/mm3 (0.0-0.4); Eosinophils % (Auto) 1.4 % (0.0-4.3); Hematocrit 36.2 % (30.3-42.9); Hemoglobin 12.2 gm/dl (10.1-14.3); Lymphocytes % (Auto) 38.5 % (13.4-35.0); Mean Corpuscular HGB Conc 34 % (30-34); Mean Corpuscular Volume 91 fl (79-97); Monocytes # (Auto) 0.3 K/mm3 (0.0-0.8); Monocytes % (Auto) 5.7 % (0.0-7.3); Platelet Count 202 K/mm3 (140-440); Red Blood Count 3.97 M/mm3 (3.65-5.03); Red Cell Distribution Width 14.3 % (13.2-15.2)
[2018-08-19 18:04] LABS: BUN/Creatinine Ratio 20; Blood Urea Nitrogen 16 mg/dL (7-17); Calcium 8.8 mg/dL (8.4-10.2); Hemolysis Index 23
[2018-08-19 20:08] LABS: Bilirubin,Urine NEG (Negative); Blood,Urine NEG (Negative); Color,Urine Yellow (Yellow); Mucus,Urine FEW /HPF; Protein,Urine <15 mg/dL mg/dL (Negative); Urobilinogen,Urine < 2.0 mg/dL (<2.0)
[2018-08-19] MEDS ORDERED: NORCO 5/325 PO ONE (20:12)
[2018-08-19] MEDS ORDERED: ZOFRAN ONE (20:14)
[2018-08-19] MEDS ORDERED: NORCO 5/325 ONE (20:14)
[2018-08-19] MEDS ORDERED: ZOFRAN IV ONE (20:22)
--- NOTE | 2018-08-19 20:23 | Emergency Department Report ---
<SHARIF FLOR - Last Filed: 08/19/18 22:46> ED Abdominal Pain HPI - General Chief Complaint: Rectal Pain Stated Complaint: RECTAL PAIN Time Seen by Provider: 08/19/18 17:20 Source: patient Mode of arrival: Ambulatory Limitations: No Limitations - History of Present Illness Initial Comments: 52 y o female was sent to ED from for rectal and vaginal pain x 3 weeks, was sent here for a CT scan interemittent x 2 years no blood in stool, pain with urine, defacating and sitting LAbs,Ua, ACC eval Complaint: abdominal pain Onset/Timin -: month(s), unknown (hx of same for past 2 years ) Location: LLQ, RLQ, suprapubic Radiation: LLQ, RLQ, suprapubic Migration to: suprapubic, other (rectum itching burning ) Severity: moderate Severity scale (0 -10): 5 Quality: aching, burning Consistency: intermittent Improves With: nothing Worsens With: other (voiding ) Associated Symptoms: dysuria. denies: nausea, vomiting Treatments Prior to Arrival: NSAIDs - Related Data LMP (females 10-50): other (s/p PAT) Home Medications Medication Instructions Recorded Confirmed Last Taken ALPRAZolam [Xanax TAB] 1 mg PO QHS PRN 02/21/16 03/18/17 03/17/17 Previous Rx's Medication Instructions Recorded Last Taken Type Cyclobenzaprine [Flexeril 10 MG 10 mg PO TID PRN #15 tablet 01/25/17 03/17/17 Rx TAB] HYDROcodone/APAP 5-325 [[place] 1 each PO Q6HR PRN #12 tablet 09/06/17 Unknown Rx 5/325] Sulfamethoxazole/Trimethoprim 1 each PO BID #14 tablet 09/06/17 Unknown Rx [Bactrim DS TAB] Azithromycin [Zithromax Z-YONG] 1 dose PO DAILY 5 Days tab 12/31/17 Unknown Rx Benzonatate [Tessalon Perles] 100 mg PO Q8HR PRN #20 capsule 12/31/17 Unknown Rx predniSONE [Deltasone] 40 mg PO QDAY 5 Days tab 12/31/17 Unknown Rx Ketorolac [Toradol] 10 mg PO TID PRN #9 tablet 08/19/18 Unknown Rx Omeprazole 20 mg PO DAILY #30 capsule. 08/19/18 Unknown Rx Allergies Allergy/AdvReac Type Severity Reaction Status Date / Time No Known Allergies Allergy Verified 08/19/18 20:13 ED Review of Systems Constitutional: denies: chills, fever Eyes: denies: eye pain, eye discharge, vision change ENT: denies: ear pain, throat pain Respiratory: denies: cough, shortness of breath, wheezing Cardiovascular: denies: chest pain, palpitations Endocrine: no symptoms reported Gastrointestinal: abdominal pain, other (no melena no rectal bleeding no hemorrhoids ). denies: nausea, vomiting, diarrhea, constipation, hematemesis, hematochezia Genitourinary: as per HPI, urgency, dysuria, frequency. denies: hematuria, discharge, abnormal menses, dyspareunia Musculoskeletal: denies: back pain, joint swelling, arthralgia Skin: denies: rash, lesions Neurological: denies: headache, weakness, paresthesias Psychiatric: denies: anxiety, depression Hematological/Lymphatic: denies: easy bleeding, easy bruising ED Past Medical Hx - Past Medical History Hx Hypertension: No Hx Congestive Heart Failure: No Hx Diabetes: No Hx GERD: Yes (FOR REVISION OF GASTRIC SURGERY) Hx Kidney Stones: Yes Hx Psychiatric Treatment: Yes (anxiety) Hx Asthma: No Hx COPD: No Hx HIV: No Additional medical history: Anemia (Has had blood transfusion x 2) - Surgical History Additional Surgical History: Gastric Bypass. TUBAL LIGATION. X 2. HYSTERECTOMY. colon resection - Social History Smoking Status: Never Smoker Substance Use Type: None - Medications Home Medications: Home Medications Medication Instructions Recorded Confirmed Last Taken Type ALPRAZolam [Xanax TAB] 1 mg PO QHS PRN 02/21/16 03/18/17 03/17/17 History Cyclobenzaprine [Flexeril 10 MG 10 mg PO TID PRN #15 tablet 01/25/17 03/18/17 03/17/17 Rx TAB] HYDROcodone/APAP 5-325 [[place] 1 each PO Q6HR PRN #12 tablet 09/06/17 Unknown Rx 5/325] Sulfamethoxazole/Trimethoprim 1 each PO BID #14 tablet 09/06/17 Unknown Rx [Bactrim DS TAB] Azithromycin [Zithromax Z-YONG] 1 dose PO DAILY 5 Days tab 12/31/17 Unknown Rx Benzonatate [Tessalon Perles] 100 mg PO Q8HR PRN #20 capsule 12/31/17 Unknown Rx predniSONE [Deltasone] 40 mg PO QDAY 5 Days tab 12/31/17 Unknown Rx Ketorolac [Toradol] 10 mg PO TID PRN #9 tablet 08/19/18 Unknown Rx Omeprazole 20 mg PO DAILY #30 capsule. 08/19/18 Unknown Rx ED Physical Exam - General Limitations: No Limitations General appearance: alert, in no apparent distress - Head Head exam: Present: atraumatic, normocephalic - Eye Eye exam: Present: normal appearance, PERRL, EOMI Pupils: Present: normal accommodation - ENT ENT exam: Present: mucous membranes moist - Neck Neck exam: Present: normal inspection, full ROM. Absent: tenderness - Respiratory Respiratory exam: Present: normal lung sounds bilaterally. Absent: respiratory distress, wheezes, stridor - Cardiovascular Cardiovascular Exam: Present: regular rate, normal rhythm, normal heart sounds. Absent: systolic murmur, diastolic murmur, rubs, gallop - GI/Abdominal GI/Abdominal exam: Present: soft, tenderness (superpubic ), normal bowel sounds. Absent: distended, guarding, rebound, rigid, bruit, hernia - Extremities Exam Extremities exam: Present: normal inspection, normal capillary refill - Back Exam Back exam: Present: normal inspection, full ROM. Absent: tenderness, CVA tenderness (R), CVA tenderness (L), muscle spasm, rash noted - Neurological Exam Neurological exam: Present: alert, oriented X3, CN II-XII intact, normal gait - Psychiatric Psychiatric exam: Present: normal affect, normal mood - Skin Skin exam: Present: warm ED Medical Decision Making - Lab Data Result diagrams: 08/19/18 17:32 08/19/18 17:32 Labs 08/19/18 08/19/18 08/19/18 17:32 17:32 19:47 WBC 5.3 RBC 3.97 Hgb 12.2 Hct 36.2 MCV 91 MCH 31 MCHC 34 RDW 14.3 Plt Count 202 Lymph % (Auto) 38.5 H [place] % (Auto) 5.7 Eos % (Auto) 1.4 Baso % (Auto) 1.0 Lymph # 2.0 [place] # 0.3 Eos # 0.1 Baso # 0.1 Seg Neutrophils % 53.4 Seg Neutrophils # 2.8 Sodium 141 Potassium 4.3 Chloride 102.2 Carbon Dioxide 30 Anion Gap 13 BUN 16 Creatinine 0.8 Estimated GFR > 60 BUN/Creatinine Ratio 20 Glucose 133 H Calcium 8.8 Urine Color Yellow Urine Turbidity Clear Urine pH 5.0 Ur Specific [place] 1.025 Urine Protein <15 mg/dl Urine Glucose (UA) Neg Urine Ketones Neg Urine Blood Neg Urine Nitrite Neg Urine Bilirubin Neg Urine Urobilinogen < 2.0 Ur Leukocyte Esterase Neg Urine WBC (Auto) 1.0 Urine RBC (Auto) 3.0 U Epithel Cells (Auto) 1.0 Urine Mucus Few - Radiology Data Radiology results: report reviewed, image reviewed Ordering Physician: SHARIF FLOR NP Date of Service: 08/19/18 Procedure(s): CT abdomen pelvis w con Accession Number(s): [id number] cc: SHARIF FLOR NP PROCEDURE: CT ABDOMEN PELVIS W CON TECHNIQUE: Computerized axial tomography of the abdomen and pelvis was performed after the IV injection of iodinated nonionic contrast. CT DOSE LENGTH PRODUCT: mGycm HISTORY: abd and pelvic pain COMPARISONS: April 08, 2017 . FINDINGS: Liver, spleen, pancreas and adrenal glands are within normal limits. Bilateral kidneys demonstrate uniform enhancement without hydronephrosis. An 8 mm nonobstructive calculus is noted in the midpole left kidney. Urinary bladder is minimally filled with normal outlines. Aorta is of normal caliber. There is no free fluid or free air. Gallbladder demonstrates normal distention w ith mild degree sludge and 2 small calculi.. Small bowel loops are within normal limits. Appendix is normal. Vertebral height is normal. There is evidence of prior gastric small bowel surgical changes. IMPRESSION: Nonobstructive calculus left kidney measuring 8 mm as seen on the prior study. Sludge with two small calculi in the gallbladder as seen on the prior study. There is no CT evidence of cholecystitis. No acute intra-abdominal or pelvic pathology. This document is electronically signed by Tera Denson MD., Aug 19 2018 09:22:09 PM ET Transcribed By: [facility] Dictated By: TERA DENSON Electronically Authenticated By: TERA DENSON Signed Date/Time: 08/19/182122 DD/ 07 TD/TT: 08/19/182107 - Medical Decision Making pain is improved to 2/10 CT abdomen and pelvis millimeter kidney stone left hydronephrosis UA is normal mild small cholelithiasis minimal sludge there is no colitis obstruction symptoms are improved with medications given plan reviewed all with Ultram there is no white count and urine CBC is normal mild likely pyelonephritis referred to urology for follow-up in 2-3 days patient currently has GI doctor Dr. Gamble patient will see same in 2 days patient is tolerating by mouth intake without nausea and vomiting. pt verbalized agreement and understanding of same. ED Disposition Clinical Impression: Renal stones, Gallstones, Dysuria Disposition: - TO HOME OR SELFCARE Is pt being admited?: No Does the pt Need Aspirin: No Condition: Stable Instructions: Cholelithiasis (ED), Kidney Stones (ED), Dysuria (ED) Prescriptions: Omeprazole 20 mg PO DAILY #30 capsule. Ketorolac [Toradol] 10 mg PO TID PRN #9 tablet PRN Reason: Pain Referrals: [facility] [Provider Group] - 3-5 Days CHARISSE MACIAS MD [Staff Physician] - 3-5 Days GALINDO ALBRECHT [Primary Care Provider] - 3-5 Days Forms: Work/School Release Form(ED) <JJ ALBA - Last Filed: 08/20/18 00:53> ED Review of Systems ROS: Stated complaint: RECTAL PAIN Other details as noted in HPI ED Course Vital Signs 08/19/18 17:19 Temperature 98.1 F Pulse Rate 84 Respiratory 20 Rate Blood Pressure 111/73 O2 Sat by Pulse 96 Oximetry ED Medical Decision Making - Lab Data Result diagrams: 08/19/18 17:32 08/19/18 17:32 Critical care attestation.: If time is entered above; I have spent that time in minutes in the direct care of this critically ill patient, excluding procedure time. ED Disposition Is pt being admited?: No Does the pt Need Aspirin: No
--- NOTE | 2018-08-19 21:23 | Cat Scan Report ---
PROCEDURE: CT ABDOMEN PELVIS W CON TECHNIQUE: Computerized axial tomography of the abdomen and pelvis was performed after the IV inject ion of iodinated nonionic contrast. CT DOSE LENGTH PRODUCT: mGycm HISTORY: abd and pelvic pain COMPARISONS: April 08, 2017 . FINDINGS: Liver, spleen, pancreas and adrenal glands are within normal limits. Bilateral kidneys demonstrate un iform enhancement without hydronephrosis. An 8 mm nonobstructive calculus is noted in the midpole lef t kidney. Urinary bladder is minimally filled with normal outlines. Aorta is of normal caliber. There is no free fluid or free air. Gallbladder demonstrates normal distention with mild degree sludge and 2 small calculi.. Small bowel loops are within normal limits. Appendix is normal. Vertebral height i s normal. There is evidence of prior gastric small bowel surgical changes. IMPRESSION: Nonobstructive calculus left kidney measuring 8 mm as seen on the prior study. Sludge with two small calculi in the gallbladder as seen on the prior study. There is no CT evidence of cholecystitis. No acute intra-abdominal or pelvic pathology. This document is electronically signed by Lc Denson MD., Aug 19 2018 09:22:09 PM ET
== END 2018-08-19 23:05 | disposition home or self-care (01) ==
LOC: ED 17:01
DX: N20.0 Calculus of kidney (principal); N13.30 Unspecified hydronephrosis; K80.80 Other cholelithiasis without obstruction; R30.0 Dysuria; K21.9 Gastro-esophageal reflux disease without esophagitis; Z98.84 Bariatric surgery status; Z98.51 Tubal ligation status; Z90.710 Acquired absence of both cervix and uterus; Z86.2 Personal history of diseases of the blood and blood-forming organs and certain disorders involving the immune mechanism
CPT/HCPCS: 36415; 74177; 80048; 81001; 85025; 96374; 99284; J2405; Q9967

== ENCOUNTER 2018-08-28 06:56 | Day surgery (SDC) | payer BC ==
[~2018-08-28 06:56] MED LIST changes: +LACTATED RINGERS 1,000 ML IV SCH; -NACL 0.9% 1000 ML 1,000 ML IV SCH; -PEPCID IV NR; -TRANSDERM-SCOP TD NR
[2018-08-28 09:56] VITALS: BP 129/79
== END 2018-08-28 06:57 | disposition home or self-care (01) ==
LOC: OR 06:56
PROVIDERS: ATTEND Urology
DX: N20.0 Calculus of kidney (principal); K21.9 Gastro-esophageal reflux disease without esophagitis; F41.9 Anxiety disorder, unspecified; Z79.899 Other long term (current) drug therapy; Z53.8 Procedure and treatment not carried out for other reasons; Z98.51 Tubal ligation status; Z90.710 Acquired absence of both cervix and uterus; Z98.891 History of uterine scar from previous surgery; Z72.89 Other problems related to lifestyle; Z98.890 Other specified postprocedural states; Z86.2 Personal history of diseases of the blood and blood-forming organs and certain disorders involving the immune mechanism
CPT/HCPCS: J7120

== ENCOUNTER 2018-11-13 08:52 | Emergency (ER) | payer BC ==
[2018-11-13 09:00] VITALS: BP 138/75
[2018-11-13 09:37] LABS: Eosinophils % (Auto) 2.2 % (0.0-4.3); Hematocrit 34.8 % (30.3-42.9); Hemoglobin 11.3 gm/dl (10.1-14.3); Lymphocytes % (Auto) 31.1 % (13.4-35.0); Mean Corpuscular HGB Conc 32 % (30-34); Mean Corpuscular Volume 96 fl (79-97); Monocytes % (Auto) 5.1 % (0.0-7.3); Platelet Count 188 K/mm3 (140-440); Red Blood Count 3.64 M/mm3 (3.65-5.03); Red Cell Distribution Width 14.6 % (13.2-15.2)
[2018-11-13 09:38] LABS: Basophils % (Auto) 0.5 % (0.0-1.8); Eosinophils # (Auto) 0.1 K/mm3 (0.0-0.4); Lymphocytes # (Auto) 1.6 K/mm3 (1.2-5.4); Monocytes # (Auto) 0.3 K/mm3 (0.0-0.8)
[2018-11-13 09:47] LABS: Bilirubin,Urine NEG (Negative); Blood,Urine SM (Negative); Color,Urine Yellow (Yellow); Mucus,Urine FEW /HPF; Protein,Urine <15 mg/dL mg/dL (Negative); Urobilinogen,Urine < 2.0 mg/dL (<2.0)
[2018-11-13 09:50] LABS: Alanine Aminotransferase 72 units/L (7-56); Albumin 4.1 g/dL (3.9-5); BUN/Creatinine Ratio 17; Blood Urea Nitrogen 10 mg/dL (7-17); Hemolysis Index 9
--- NOTE | 2018-11-13 10:57 | Emergency Department Report ---
HPI - General Chief Complaint: Abdominal Pain Time Seen by Provider: 11/13/18 10:29 - HPI HPI: Room 26 The patient is a 53-year-old female presenting with a chief complaint of abdominal pain. Patient states yesterday she developed lower abdominal pain cramping has been intermittent in nature. Patient states the pain comes on and lasts approximately 5-7 minutes each time before resolves. Patient is to nausea but denies vomiting or diarrhea. Patient denies history of fever, dysuria or hematuria. Patient denies vaginal discharge. The patient states she has not had the pain since she's been in the emergency department. Location: [See above] Duration: [See above] Quality: [See above] Severity: [See above] Modifying factors: [see above] Context: [see above] Mode of transportation: [not driving] ED Past Medical Hx - Past Medical History Previous Medical History?: Yes Hx Kidney Stones: Yes Hx Psychiatric Treatment: Yes (anxiety) Additional medical history: Anemia (Has had blood transfusion x 2) - Surgical History Past Surgical History?: Yes Additional Surgical History: Gastric Bypass. TUBAL LIGATION. X 2. HYSTERECTOMY. colon resection - Family History Family history: no significant - Social History Smoking Status: Never Smoker Substance Use Type: None (denies illicit drug use), Alcohol (occasional) - Medications Home Medications: Home Medications Medication Instructions Recorded Confirmed Last Taken Type ALPRAZolam [Xanax TAB] 1.5 mg PO QHS PRN 02/21/16 08/28/18 08/27/18 21:00 History HYDROcodone/APAP 5-325 [[place] 1 each PO Q6HR PRN #12 tablet 09/06/17 08/28/18 08/27/18 21:00 Rx 5/325] HYDROcodone/APAP 5-325 [[place] 1 - 2 each PO Q6HR PRN #10 tablet 11/13/18 Unknown Rx 5/325] levoFLOXacin [Levaquin] 250 mg PO QDAY #3 tablet 11/13/18 Unknown Rx ED Review of Systems ROS: Stated complaint: KIDNEY STONE/STOMACH PAIN Other details as noted in HPI Constitutional: denies: fever Eyes: denies: eye pain ENT: denies: throat pain Respiratory: no symptoms reported Cardiovascular: denies: chest pain Endocrine: no symptoms reported Gastrointestinal: abdominal pain, nausea. denies: vomiting Genitourinary: denies: dysuria, hematuria Musculoskeletal: denies: back pain Neurological: denies: headache Physical Exam - Physical Exam Vital Signs: Vital Signs 11/13/18 08:59 Temperature 98.1 F Pulse Rate 64 Respiratory 18 Rate Blood Pressure 138/75 O2 Sat by Pulse 100 Oximetry Physical Exam: GENERAL: The patient is well-developed well-nourished female lying on stretcher not appearing to be in acute distress. [] HEENT: Normocephalic. Atraumatic. Extraocular motions are intact. Patient has moist mucous membranes. NECK: Supple. Trachea midline CHEST/LUNGS: Clear to auscultation. There is no respiratory distress noted. HEART/CARDIOVASCULAR: Regular. There is no tachycardia. There is no gallop rub or murmur. ABDOMEN: Abdomen is soft, with mild discomfort to palpation in the left upper quadrant. There is no rebound or guarding. Patient has normal bowel sounds. There is no abdominal distention. SKIN: There is no rash. There is no edema. There is no diaphoresis. NEURO: The patient is awake, alert, and oriented. The patient is cooperative. The patient has normal speech MUSCULOSKELETAL: There is no evidence of acute injury. ED Course Vital Signs 11/13/18 08:59 Temperature 98.1 F Pulse Rate 64 Respiratory 18 Rate Blood Pressure 138/75 O2 Sat by Pulse 100 Oximetry ED Medical Decision Making - Lab Data Result diagrams: 11/13/18 09:10 11/13/18 09:10 Laboratory Tests 11/13/18 11/13/18 11/13/18 09:10 09:10 09:10 WBC 5.2 RBC 3.64 L Hgb 11.3 Hct 34.8 MCV 96 MCH 31 MCHC 32 RDW 14.6 Plt Count 188 Lymph % (Auto) 31.1 [place] % (Auto) 5.1 Eos % (Auto) 2.2 Baso % (Auto) 0.5 Lymph # 1.6 Gooding # 0.3 Eos # 0.1 Baso # 0.0 Seg Neutrophils % 61.1 Seg Neutrophils # 3.2 Sodium 141 Potassium 3.6 Chloride 104.1 Carbon Dioxide 30 Anion Gap 11 BUN 10 Creatinine 0.6 L Estimated GFR > 60 BUN/Creatinine Ratio 17 Glucose 92 Calcium 9.0 Total Bilirubin 0.50 AST 50 H ALT 72 H Alkaline Phosphatase 75 Total Protein 7.4 Albumin 4.1 Albumin/Globulin Ratio 1.2 Lipase 53 Urine Color Yellow Urine Turbidity Slightly-cloudy Urine pH 5.0 Ur Specific [place] 1.019 Urine Protein <15 mg/dl Urine Glucose (UA) Neg Urine Ketones Neg Urine Blood Sm Urine Nitrite Neg Urine Bilirubin Neg Urine Urobilinogen < 2.0 Ur Leukocyte Esterase Tr Urine WBC (Auto) 7.0 H Urine RBC (Auto) 13.0 U Epithel Cells (Auto) 1.0 Urine Mucus Few - Radiology Data Radiology results: report reviewed (CT abdomen and pelvis), image reviewed (CT a bdomen and pelvis) [facility] [address] [place] [address] Cat Scan Report Signed Patient: DAMIÁN VELASCO MR#: [id number] : 8 Acct:[id number] Age/Sex: 53 / F ADM Date: 11/13/18 Loc: ED Attending Dr: Ordering Physician: FABIEN ALLEN MD Date of Service: 11/13/18 Procedure(s): CT abdomen pelvis w con Accession Number(s): [id number] cc: FABIEN ALLEN MD CT scan of the abdomen and pelvis with contrast INDICATION: MAIN: TODAY, lower abdominal pain/cramping HX Kidney stones. TECHNIQUE: All CT scans at this location are performed using the following dose modulation technique: Automated exposure control. Helical slices were obtained through the abdomen and pelvis. Intravenous contrast is administered. COMPARISON: CT scan dated 08/19/2018 FINDINGS: Abdomen: The lung bases are clear. There is mild periportal edema in the liver. The spleen, pancreas, adrenal glands, and right kidney are unchanged. Nonobstructing calculus in the left kidney is again noted increased in size in the interval. Changes of prior gastric bypass are noted There is no adenopathy. The aorta is normal in diameter. Pelvis: There is a small amount of ascites in the pelvis. There is no inflammatory change. There is no obstruction or free air. The appendix is not seen On review of bone windows, no acute osseous abnormalities are seen. IMPRESSION: 1. There is no obstruction, inflammation, or free air. There are no abnormal fluid collections. There is periportal edema which is nonspecific. This can be related to hepatocellular disease. This can be related to fluid overload or cardiac disease. There is nephrolithiasis on the left. Signer Name: Cliff Lozada MD Signed: 11/13/2018 12:28 PM Workstation Name: [id number] Transcribed By: SS Dictated By: Cliff Lozada MD Electronically Authenticated By: Cliff Lozada MD Signed Date/Time: 11/13/18 1228 DD/ 1206 TD/TT: - Differential Diagnosis UTI, diverticulitis, gastritis, Critical care attestation.: If time is entered above; I have spent that time in minutes in the direct care of this critically ill patient, excluding procedure time. ED Disposition Clinical Impression: Acute abdominal pain, UTI (urinary tract infection), Elevated LFTs Disposition: TO HOME OR SELFCARE Is pt being admited?: No Does the pt Need Aspirin: No Condition: Stable Instructions: Abdominal Pain (ED) Additional Instructions: Return to the emergency department immediately should you develop worsening symptoms, fever, inability to tolerate food or liquid or any other concerns. Prescriptions: levoFLOXacin [Levaquin] 250 mg PO QDAY #3 tablet HYDROcodone/APAP 5-325 [[place] 5/325] 1 - 2 each PO Q6HR PRN #10 tablet PRN Reason: Pain Referrals: [facility] MD SADA [Primary Care Provider] - 3-5 Days MICHELLE MCNEAL MD [Staff Physician] - 3-5 Days (Dr. Mcneal is a lease administration analyst. Please follow with further evaluation of your elevated liver function tests (AST, a LT)) Time of Disposition: 12:48
--- NOTE | 2018-11-13 12:32 | Cat Scan Report ---
CT scan of the abdomen and pelvis with contrast INDICATION: MAIN: TODAY, lower abdominal pain/cramping HX Kidney stones. TECHNIQUE: All CT scans at this location are performed using the following dose modulation technique: Automated exposure control. Helical slices were obtained through the abdomen and pelvis. Intravenous contrast i s administered. COMPARISON: CT scan dated 08/19/2018 FINDINGS: Abdomen: The lung bases are clear. There is mild periportal edema in the liver. The spleen, pancreas, adrenal glands, and right kidney are unchanged. Nonobstructing calculus in the left kidney is again noted increased in size in the interval. Changes of prior gastric bypass are noted There is no adenopathy. The aorta is normal in diameter. Pelvis: There is a small amount of ascites in the pelvis. There is no inflammatory change. There is n o obstruction or free air. The appendix is not seen On review of bone windows, no acute osseous abnormalities are seen. IMPRESSION: 1. There is no obstruction, inflammation, or free air. There are no abnormal fluid collections. There is periportal edema which is nonspecific. This can be related to hepatocellular disease. This c an be related to fluid overload or cardiac disease. There is nephrolithiasis on the left. Signer Name: Cliff Lozada MD Signed: 11/13/2018 12:28 PM Workstation Name: [id number]
[2018-11-13] MEDS ORDERED: TORADOL IV ONE (12:43)
[2018-11-13] MEDS ORDERED: TORADOL ONE (12:45)
== END 2018-11-13 13:23 | disposition home or self-care (01) ==
LOC: ED 08:52
DX: N39.0 Urinary tract infection, site not specified (principal); R94.5 Abnormal results of liver function studies; F41.9 Anxiety disorder, unspecified
CPT/HCPCS: 36415; 74177; 80053; 81001; 83690; 85025; 96374; 99284; J1885; Q9967